=== PATIENT | female | born 1945 | race Caucasian/White ===

== ENCOUNTER 2019-07-23 18:49 | Emergency (ER) | payer BC ==
[~2019-07-23] VITALS: Ht 170.2 cm; Wt 68.0 kg
[2019-07-23 19:02] VITALS: BP 179/88
[2019-07-23] MEDS ORDERED: CALCIUM500 MG PO (19:05)
[2019-07-23] MEDS ORDERED: SUPER THERAVIT1 EACH PO (19:05)
[2019-07-23] MEDS ORDERED: ZYRTEC10 M5 PO (19:05)
[2019-07-23] MEDS ORDERED: MUPIROCIN15 GM TOP (19:24)
[2019-07-23] MEDS ORDERED: DOXYCYCLINE 10100 MG PO (19:24)
== END 2019-07-23 19:43 | disposition home or self-care (01) ==
LOC: M.ERS 18:49
DX: T81.49XA Infection following a procedure, other surgical site, initial encounter (principal); R68.84 Jaw pain; Z88.0 Allergy status to penicillin; Z88.2 Allergy status to sulfonamides; Z90.49 Acquired absence of other specified parts of digestive tract; Z85.828 Personal history of other malignant neoplasm of skin; Y84.8 Other medical procedures as the cause of abnormal reaction of the patient, or of later complication, without mention of misadventure at the time of the procedure; Y92.89 Other specified places as the place of occurrence of the external cause